=== PATIENT | female | born 1990 | race African-American/Black ===

== ENCOUNTER 2017-11-01 12:47 | Emergency (ER) | payer SELFPAY ==
[2017-11-01 13:56] LABS: URINE HCG POC HCG NEGATIVE (Negative)
[2017-11-01 14:08] LABS: BILIRUBIN,URINE NEGATIVE (NEG); CLARITY,URINE CLEAR; COLOR,URINE YELLOW; GLUCOSE,URINE NEGATIVE (NEG); NITRITE,URINE NEGATIVE (NEG); PH,URINE 7.5; PROTEIN,URINE NEGATIVE (NEG-TRACE); UROBILINOGEN,URINE 0.2 mg/dL (0.2 mg/dL)
[2017-11-01 14:20] LABS: BACTERIA,URINE FEW /HPF (0-FEW); RBC,URINE OCC /HPF (0-2)
[2017-11-01 14:21] LABS: SQUAMOUS EPITHELIAL CELL,UR MOD /LPF
[2017-11-01] MEDS: ASPIRIN 325 MG TABLET PO (14:42)
[2017-11-01 14:48] LABS: BARBITURATES NEG (NEG); BENZODIAZEPINES NEG (NEG); CANNABINOIDS NEG (NEG); COCAINE NEG (NEG); METHADONE NEG (NEG); OPIATES NEG (NEG); PHENCYCLIDINE NEG (NEG)
[2017-11-01 14:50] LABS: AMPHETAMINE/METHAMPHETAMINE NEG (NEG); ETHANOL, URINE NEG (NEG)
[2017-11-01 15:01] LABS: ADD MAN DIFF? NO
[2017-11-01 15:05] LABS: BASO % 0 % (0-3); EOS # 0.1 x10^3/uL (0.0-0.7); EOS % 2 % (0-3); HEMATOCRIT 39.8 % (36.0-47.0); HEMOGLOBIN 13.7 g/dL (12.0-15.5); LYMPH # 2.1 x10^3/uL (1.0-4.8); LYMPH % 29 % (24-48); MEAN CORPUSCULAR HEMOGLOBIN 33 pg (25-35); MEAN CORPUSCULAR HGB CONC 35 g/dL (31-37); MEAN CORPUSCULAR VOLUME 94 fL (79-100); MONO # 0.6 x10^3/uL (0.0-1.1); MONO % 8 % (0-9); NEUT # 4.6 x10^3uL (1.8-7.7); NEUT % 62 % (31-73); PLATELET COUNT 259 x10^3/uL (140-400); RED BLOOD COUNT 4.21 x10^6/uL (3.50-5.40); WHITE BLOOD COUNT 7.4 x10^3/uL (4.0-11.0)
[2017-11-01 15:14] LABS: ANION GAP 6 (6-14); BLOOD UREA NITROGEN 16 mg/dL (7-20); CALCIUM 9.6 mg/dL (8.5-10.1); CARBON DIOXIDE 28 mmol/L (21-32); CHLORIDE 104 mmol/L (98-107); CREATININE 0.9 mg/dL (0.6-1.0); GFR 92.3; GLUCOSE 85 mg/dL (70-99); MAGNESIUM 2.2 mg/dL (1.8-2.4); POTASSIUM 3.9 mmol/L (3.5-5.1); SODIUM 138 mmol/L (136-145)
[2017-11-01 15:23] LABS: TROPONINI < 0.017 ng/mL (0.000-0.055)
[2017-11-01 15:28] LABS: NT-PRO BNP 56 pg/mL (0-124); THYROID STIM HORMONE (TSH) 0.689 uIU/mL (0.358-3.74)
[2017-11-01 15:28] LABS: CKMB INDEX 0.3 % (0-4); CKMB MASS 0.7 ng/mL (0.0-3.6); CREATINE KINASE 233 U/L (26-192)
== END 2017-11-01 16:20 | disposition home or self-care (01) ==
LOC: ER 16:20
DX: N39.0 Urinary tract infection, site not specified (principal); R53.1 Weakness; M94.0 Chondrocostal junction syndrome [Tietze]; R07.89 Other chest pain
CPT/HCPCS: 36415; 71045; 80048; 80307; 81001; 81025; 82553; 83735; 83880; 84443; 84484; 85025; 87086; 93005; 99285-25